=== PATIENT | female | born 2000 | race African-American/Black ===

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

== ENCOUNTER 2020-03-15 23:11 | Emergency (ER) | payer OTHER ==
[2020-03-15] MEDS ORDERED: IBUPROFEN 800 MG TABLET PO ONE (23:37)
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
[2020-03-16 01:23] VITALS: BP 110/72
== END 2020-03-16 00:21 | disposition home or self-care (01) ==
LOC: ER 23:11
DX: S16.1XXA Strain of muscle, fascia and tendon at neck level, initial encounter (principal); V43.52XA Car driver injured in collision with other type car in traffic accident, initial encounter; G44.319 Acute post-traumatic headache, not intractable; Z88.0 Allergy status to penicillin
CPT/HCPCS: 70450; 72040; 99284